=== PATIENT | male | born 1985 | race Caucasian/White ===

== ENCOUNTER 2019-06-10 11:57 | Emergency (ER) | payer SELFPAY ==
[~2019-06-10] VITALS: Ht 182.9 cm; Wt 84.8 kg
== END 2019-06-10 12:50 | disposition home or self-care (01) ==
LOC: ER 11:57
DX: R55 Syncope and collapse (principal)
CPT/HCPCS: 99284

== ENCOUNTER 2019-06-13 13:15 | Emergency (ER) | payer OTHER ==
[~2019-06-13] VITALS: Ht 182.9 cm; Wt 88.0 kg
[2019-06-13] MEDS ORDERED: PSEU120ER PO (14:19)
[2019-06-13] MEDS ORDERED: NAPR500 (14:19)
[2019-06-13] MEDS ORDERED: CYCL10 PO (14:20)
[2019-06-13] MEDS ORDERED: Prednisone20 MG PO (14:40)
[2019-06-13] MEDS ORDERED: Augmentin 875-1 EACH PO (14:40)
== END 2019-06-13 14:47 | disposition home or self-care (01) ==
LOC: ER 13:15
DX: J32.9 Chronic sinusitis, unspecified (principal); F17.200 Nicotine dependence, unspecified, uncomplicated; Z79.899 Other long term (current) drug therapy
CPT/HCPCS: 99282

== ENCOUNTER 2019-11-01 14:12 | Emergency (ER) | payer OTHER ==
[~2019-11-01 14:12] MED LIST: Augmentin 875-1 EACH PO; CYCL10 PO; NAPR500; PSEU120ER PO; Prednisone20 MG PO
== END 2019-11-01 15:44 | disposition left against medical advice (07) ==
LOC: ER 14:12
DX: Z53.21 Procedure and treatment not carried out due to patient leaving prior to being seen by health care provider (principal)

== ENCOUNTER 2020-04-23 13:10 | Emergency (ER) | payer OTHER ==
[~2020-04-23] VITALS: Ht 182.9 cm; Wt 88.5 kg
[2020-04-23] MEDS ORDERED: IBUP200 PO (13:56)
[2020-04-23] MEDS ORDERED: ONDA4ODT MM (14:57)
[2020-04-23] MEDS ORDERED: OXAYDO5 M1 PO (15:03)
== END 2020-04-23 15:09 | disposition home or self-care (01) ==
LOC: ER 13:10
DX: S06.0X9A Concussion with loss of consciousness of unspecified duration, initial encounter (principal); F17.200 Nicotine dependence, unspecified, uncomplicated; W51.XXXA Accidental striking against or bumped into by another person, initial encounter; Y92.89 Other specified places as the place of occurrence of the external cause; Y99.0 Civilian activity done for income or pay
CPT/HCPCS: 70450; 99284-25; A9270